=== PATIENT | female | born 1950 | race Caucasian/White ===

== ENCOUNTER 2024-07-26 03:41 | Emergency (ER) | payer MEDICARE ==
[~2024-07-26] VITALS: Ht 162.6 cm; Wt 115.7 kg
[2024-07-26] MEDS ORDERED: SODIUM CHLORIDE 0.9% 1,000 ML IV ONE (04:00)
[2024-07-26] MEDS ORDERED: LOSARTAN POTASS25 MG PO (04:00)
[2024-07-26] MEDS ORDERED: DIPHENOXYLATE/ATROPINE 1 EA TAB PO ONE (04:00)
[2024-07-26] MEDS ORDERED: AMLODIPINE BESY10 MG (04:01)
[2024-07-26 04:15] LABS: BASOPHILS 0.2 % (0-2); EOSINOPHILS 0.5 % (0-6); HEMATOCRIT 49.7 % (35.0-50.0); LYMPHOCYTES 3.2 % (24-44); MCH 28.8 (27-36); MCHC 34.1 g/dl (30-36); MCV 84.4 fl (81-99); MONOCYTES 2.5 % (0-12); NEUTROPHILS 93.6 % (39-80); PLATELET COUNT 182 K/uL (140-440); RBC 5.89 M/ul (4.3-5.7); RDW 14.1 (10.5-15.0)
[2024-07-26 05:14] LABS: ALBUMIN/GLOBULIN RATIO 0.98 (1.1-2.4); ANION GAP 13.9 (7-21); BUN/CREATININE RATIO 15.55 (6.0-28.6); CALCIUM 8.8 mg/dL (8.5-10.1); CREATININE, SERUM 0.9 mg/dL (0.55-1.02); MAGNESIUM 1.8 mg/dL (1.8-2.4); POTASSIUM 3.9 mmol/L (3.5-5.1); PROTEIN, TOTAL 8.1 g/dL (6.4-8.2)
[2024-07-26] MEDS ORDERED: ONDANSETRON 4 MG HOME.PACK SL ONE (05:45)
[2024-07-26] MEDS ORDERED: LOMOTIL TABLET1 EACH PO (05:49)
[2024-07-26] MEDS ORDERED: ONDANSETRON ODT8 MG PO (05:49)
[2024-07-26] MEDS ORDERED: ondansetron HCL 4 MG/2 ML VIAL IV ONE (06:15)
[2024-07-26 06:35] VITALS: BP 173/75
== END 2024-07-26 06:30 | disposition home or self-care (01) ==
LOC: ED 03:41
PROVIDERS: Emergency Medicine
DX: K52.9 Noninfective gastroenteritis and colitis, unspecified (principal); M25.511 Pain in right shoulder; R07.89 Other chest pain; Z88.5 Allergy status to narcotic agent; Z79.899 Other long term (current) drug therapy
CPT/HCPCS: 36415; 80053; 83735; 85025; 96361; 96374; 99284-25; A9270; J2405; J7030